=== PATIENT | female | born 1985 | race Caucasian/White ===

== ENCOUNTER → 2018-04-02 | Outpatient (REF) | payer BC ==
[~2018-04-02] MED LIST: AUG875 PO; HYDR2TAB42; HYDROCODONE PO; LOR5 PO; LOR5/325 PO; PANT40TA65 PO; PROM-110 PO; SOMA PO; SUCR1TAB85 PO; TRA50 PO
[2018-04-02 15:23] LABS: PLATELET COUNT, AUTOMATED 314 K/uL (150-450)
== END ==
PROVIDERS: ATTEND Family Medicine
DX: R07.9 Chest pain, unspecified (principal)
CPT/HCPCS: 82040; 82247; 82310; 82374; 82435; 82565; 82947; 84075; 84132; 84155; 84295; 84450; 84460; 84520; 85025; 85379

== ENCOUNTER → 2018-04-23 | Outpatient (CLI) | payer BC ==
[2018-04-23 13:32] LABS: PLATELET COUNT, AUTOMATED 353 K/uL (150-450)
== END ==
LOC: LAB 11:12
PROVIDERS: ATTEND Obstetrics & Gynecology
DX: Z34.01 Encounter for supervision of normal first pregnancy, first trimester (principal)
CPT/HCPCS: 36415; 85025; 86592; 86703; 86762; 86850; 86900; 86901; 87340

== ENCOUNTER → 2018-04-24 | Outpatient (CLI) | payer BC | LOC: LAB 11:11 | PROVIDERS: ATTEND Obstetrics & Gynecology | DX: Z34.01 Encounter for supervision of normal first pregnancy, first trimester (principal) | CPT/HCPCS: 81001; 87088; 87491; 87591 ==

== ENCOUNTER → 2018-05-22 | Outpatient (CLI) | payer BC | LOC: LAB 13:51 | PROVIDERS: ATTEND Obstetrics & Gynecology | DX: Z34.02 Encounter for supervision of normal first pregnancy, second trimester (principal) | CPT/HCPCS: 36415; 81511 ==

== ENCOUNTER → 2018-06-25 | Outpatient (CLI) | payer BC ==
--- NOTE | 2018-06-25 13:23 | RADIOLOGY IMAGING REPORT ---
FACILITY: [facility] PATIENT NAME: Yue Navarro : 1985 MR: [id number] V: [id number] EXAM DATE: ORDERING PHYSICIAN: AMY MASON TECHNOLOGIST: Location: [facility] Patient: Yue Navarro : 1985 Visit/Account:[id number] Date of Sevice: 06/25/2018 EXAMINATION: Ultrasound transabdominal OB > 14 weeks with anatomic evaluation HISTORY: 20 week anatomical survey COMPARISON: None. TECHNIQUE: Transabdominal imaging was performed for assessment of the fetus and maternal pelvic structures. T ransvaginal imaging was not performed. FINDINGS: Placenta: Posterior without previa. Uterus: Gravid, otherwise normal Cervix: Long and closed. Maternal Ovaries: Not visualized. Maternal and other adnexa findings: Negative. Intrauterine gestations: One. presentation: Variable heart rate: Normal and regular at 147 bpm Amniotic fluid index: 13 cm Largest amniotic fluid pocket: Images not submitted Gestational Parameters: BPD: 4.52 cm 19 weeks/ five days, 48 percentile HC: 17.22 cm 19 weeks/ six days, 46 percentile AC: Routine 0.29 cm 19 weeks/ five days, 42 central FL: 3.12 cm 19 weeks/ five days, 41 Average ultrasound age (AUA): 19 weeks/six days, BRENDA 11/13/2018 Estimated gestational age by BRENDA: 19 weeks/five days, BRENDA 11/14/2018 Estimated weight (EFW): 306 grams +/- 45 grams EFW for BRENDA: 43 percentile Anatomic Survey: Intracranial structures, 4-chamber heart, stomach, kidneys, urinary bladder, spine, 3-vessel cord and cord insertion are unremarkable. Two upper and two lower extremities visualized. Cardiac ventricula r outflow tracts, palate and lips are unremarkable in appearance. IMPRESSION: Single viable fetus in variable presentation with an estimated gestational age by measur ements of 19 weeks and six days. Estimated weight is 306 g equivalent to the 43rd percentile Report Dictated By: Irene Snow MD at 06/25/2018 1:11 PM Report E-Signed By: Irene Snow MD at 06/25/2018 1:19 PM WSN:LYNDON
== END ==
LOC: RAD 10:42
PROVIDERS: ATTEND Obstetrics & Gynecology
DX: Z02.9 Encounter for administrative examinations, unspecified (principal)

== ENCOUNTER → 2018-08-14 | Outpatient (CLI) | payer BC, MEDICAID ==
[~2018-08-14] MED LIST changes: +DIPH0.5S2 IM; +ONDA4TAB9 PO; +PREN-127 PO
[2018-08-14 14:59] LABS: PLATELET COUNT, AUTOMATED 307 K/uL (150-450)
== END ==
LOC: LAB 13:01
PROVIDERS: ATTEND Obstetrics & Gynecology
DX: Z34.02 Encounter for supervision of normal first pregnancy, second trimester (principal)
CPT/HCPCS: 36415; 82950; 85025

== ENCOUNTER → 2018-08-17 | Outpatient (CLI) | payer BC, MEDICAID | LOC: LAB 09:55 | PROVIDERS: ATTEND Obstetrics & Gynecology | DX: O99.810 Abnormal glucose complicating pregnancy (principal) | CPT/HCPCS: 36415; 82951; 82952 ==

== ENCOUNTER → 2018-10-15 | Outpatient (CLI) | payer BC, MEDICAID ==
[~2018-10-15] MED LIST changes: +BET6I IM ONLY
== END ==
LOC: LAB 07:50
PROVIDERS: ATTEND Obstetrics & Gynecology
DX: Z34.93 Encounter for supervision of normal pregnancy, unspecified, third trimester (principal)
CPT/HCPCS: 87081

== ENCOUNTER → 2018-10-15 | Outpatient (CLI) | payer BC, MEDICAID ==
--- NOTE | 2018-10-15 13:52 | RADIOLOGY IMAGING REPORT ---
FACILITY: [facility] PATIENT NAME: Yue Navarro : 1985 MR: [id number] V: [id number] EXAM DATE: ORDERING PHYSICIAN: AMY MASON TECHNOLOGIST: Location: [facility] Patient: Yue Navarro : 1985 Visit/Account:[id number] Date of Sevice: 10/15/2018 EXAMINATION: Ultrasound transabdominal OB > 14 weeks with anatomic evaluation HISTORY: Uterine size date discrepancy COMPARISON: June 25, 2018 TECHNIQUE: Transabdominal imaging was performed for assessment of the fetus and maternal pelvic structures. T ransvaginal imaging was not performed. FINDINGS: Placenta: Posterior without previa. Uterus: Gravid, otherwise normal Cervix: Long and closed. Maternal Ovaries: Not visualized. Maternal and other adnexa findings: Not visualized Intrauterine gestations: One. presentation: Cephalic heart rate: Normal and regular at 149 bpm Amniotic fluid index: 12.36 cm Largest amniotic fluid pocket: 4.56 cm Gestational Parameters: BPD: 8.84 cm 35 weeks/ six days, 58% HC: 31.49 cm five weeks/ free days, 13% AC: 30.35 cm 34 weeks/ three days, 20% FL: 6.7 cm 34 weeks/ two days, 12% Average ultrasound age (AUA): 35 weeks/zero days, BRENDA 11/19/2018 Estimated gestational age by LMP: 35 weeks/five days, BRENDA 11/14/2018 Estimated weight (EFW): 2456 grams +/- 359 grams EFW for LMP: 20% percentile Anatomic Survey: Anatomic survey not performed IMPRESSION: Single fetus in cephalic presentation with an estimated gestational age by measurements of 35 weeks and zero days. The estimated gestational age by LMP is 35 weeks and five days. The estimated weight is 2456 g equivalent to the 20th percentile Report Dictated By: Irene Snow MD at 10/15/2018 1:42 PM Report E-Signed By: Irene Snow MD at 10/15/2018 1:46 PM WSN:LYNDON
== END ==
LOC: RAD 09:53
PROVIDERS: ATTEND Obstetrics & Gynecology
DX: Z02.9 Encounter for administrative examinations, unspecified (principal)

== ENCOUNTER → 2018-10-16 | Outpatient (CLI) | payer BC, MEDICAID ==
[2018-10-16 09:32] LABS: PLATELET COUNT, AUTOMATED 245 K/uL (150-450)
== END ==
LOC: LAB 08:43
PROVIDERS: ATTEND Obstetrics & Gynecology
DX: O16.3 Unspecified maternal hypertension, third trimester (principal)
CPT/HCPCS: 36415; 82040; 82247; 82310; 82374; 82435; 82565; 82570; 82947; 83615; 84075; 84132; 84155; 84156; 84295; 84450; 84460; 84520; 84550; 85025

== ENCOUNTER 2018-10-23 19:43 | Inpatient (IN) | payer MEDICAID ==
[~2018-10-23] VITALS: Ht 182.9 cm; Wt 121.1 kg
[2018-10-23] MEDS ORDERED: FAMOTIDINE(*) 20MG/50ML PREMIX 50 ML IVPB PRN (19:46)
[2018-10-23] MEDS ORDERED: OXYTOCIN 30 UNIT/NS 500 ML 500 ML IV PRN (19:46)
[2018-10-23] MEDS ORDERED: ceFAZolin(*) 2GM/D5W 50ML 50 ML IVPB PRN (19:46)
[2018-10-23] MEDS ORDERED: MISOPROSTOL 25 MCG CAP PV PRN (19:50)
[2018-10-23] MEDS ORDERED: LIDOCAINE 1% LOCAL 300 MG/30ML INJ PRN (19:50)
[2018-10-23] MEDS ORDERED: fentaNYL CITR 100 MCG/2 ML AMP IVP PRN (19:50)
[2018-10-23] MEDS ORDERED: LIDOCAINE/SOD BICARB 8.4% SYR SC PRN (19:50)
[2018-10-23] MEDS ORDERED: DINOPROSTONE 10 MG INSERT PV ONE (19:50)
[2018-10-23] MEDS ORDERED: METOCLOPRAMIDE 10 MG/2 ML SDV IVP PRN (19:50)
[2018-10-23 20:20] VITALS: BP 128/75; Ht 182.9 cm; Wt 121.1 kg
[2018-10-23 20:39] LABS: PLATELET COUNT, AUTOMATED 267 K/uL (150-450)
[2018-10-23 21:13] LABS: INR 0.92
[2018-10-23] MEDS ORDERED: ZOLPIDEM TARTRATE 10 MG TAB PO ONE (22:55)
[2018-10-23] MEDS ORDERED: CLINDAMYCIN(*) 900 MG/NS 50 ML 50 ML IVPB PRN (22:55)
[2018-10-23] MEDS ORDERED: CALCIUM CARBONATE 500 MG CHEW PO PRN (22:55)
[2018-10-23] MEDS ORDERED: ONDANSETRON 4 MG/2 ML VIAL IVP PRN (22:55)
[2018-10-23] MEDS: ACETAMINOPHEN 325 MG TAB PO PRN (23:14)
[2018-10-24] VITALS (23 sets, daily range): BP systolic 87–120; BP diastolic 55–80
[2018-10-24] MEDS: LR(*) 1000 ML BAG 1,000 ML IV PRN ×2 (03:16→03:17)
[2018-10-24] MEDS: ACETAMINOPHEN 325 MG TAB PO PRN (04:02)
[2018-10-24] MEDS ORDERED: BUPIVACAINE 0.25% MPF INJ EPI PRN (08:00)
[2018-10-24] MEDS ORDERED: BUPIVACAINE 0.5% INJ 30ML VIAL EPI PRN (08:00)
[2018-10-24] MEDS ORDERED: fentaNYL CITR 100 MCG/2 ML AMP IT PRN (08:00)
[2018-10-24] MEDS ORDERED: LIDOCAINE/PF 2% 200MG/10ML AMP 200 MG/10 ML AMPUL EPI PRN (08:00)
[2018-10-24] MEDS ORDERED: FENTANYL/ROPIVACAINE 100 ML BAG EPI PRN (08:00)
[2018-10-24] MEDS ORDERED: LIDO/EPI 2% MPF 1:200,000 20ML EPI PRN (08:00)
--- NOTE | 2018-10-24 09:08 | Labor Progress Note ---
Labor Subjective Progress Notes Subjective PT feeling pain with ctx, rating pain at 5. Vaginal Discharge/Fluid: Bloody Show Labor Pain: Moderate Labor Objective Vital Signs Vital Signs Date Time Temp Pulse Resp B/P (MAP) Pulse Ox O2 Delivery O2 Flow Rate FiO2 10/23/18 20:20 98.1 71 21 128/75 (92) 95 Room Air Vaginal Discharge/Fluid?: Bloody Show, Clear Fluid Cervical Dialation: 3.5 Cervical Effacement (%): 70 Cervical Consistency: Soft Cervical Position: Anterior Station: -2 Presentation: Vertex Uterine Contractions(Q min): 1 Uterine Contraction Strength: Moderate Fetus Heart Tone Variabilty: Moderate FHT Accelerations: 15X15 FHT Decelerations: Variable FHT Category: II General Exam General Appearance: Alert/Awake/No Acute Distress Psychological: Alert & Oriented X3, Appropriate Mood & Affect Other Result Diagram: 10/23/18202510/23/182025 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 If no improvement will proceed with PLTCS. ) Problems: (1) Variable heart rate decelerations, antepartum Status: Acute MAYRA DE LUNA DO Oct 24, 2018 09:08
[2018-10-24] MEDS ORDERED: OXYTOCIN 10 UNIT/ML SDV ONE (09:12)
[2018-10-24] MEDS ORDERED: fentaNYL CITR 100 MCG/2 ML AMP ONE (09:12)
[2018-10-24] MEDS ORDERED: MORPHINE PF 5 MG/10 ML AMP ONE (09:12)
--- NOTE | 2018-10-24 09:28 | Labor Progress Note ---
Labor Subjective Progress Notes Subjective Continued pain with ctx Labor Objective Vital Signs Vital Signs Date Time Temp Pulse Resp B/P (MAP) Pulse Ox O2 Delivery O2 Flow Rate FiO2 10/23/18 20:20 98.1 71 21 128/75 (92) 95 Room Air Cervical Dialation: 3 Cervical Effacement (%): 70 Station: -2 Presentation: Vertex Uterine Contractions(Q min): 5 Uterine Contraction Strength: Strong UC Resting Tone: Soft Fetus Heart Tone Variabilty: Moderate FHT Accelerations: Absent FHT Decelerations: Variable (recurrent variables to the 70s with ctx ) General Exam General Appearance: Alert/Awake/No Acute Distress Abdomen: Gravid - Non-Tender Other Result Diagram: 10/23/18202510/23/182025 Assessment and Plan Problems: (1) Variable heart rate decelerations, antepartum Status: Acute Assessment & Plan: Variables persist with every ctx, patient is remote from delivery. Will proceed with PLTCS due to nonreassuring status. Informed consent obtained. Risks and benefits discussed with patient. MAYRA DE LUNA DO Oct 24, 2018 09:28
[2018-10-24] MEDS ORDERED: NS 0.9% IVPB ONE ×2 (09:36→12:35)
[2018-10-24] MEDS ORDERED: GENTAMICIN IVPB ONE ×2 (09:36→12:35)
[2018-10-24] MEDS ORDERED: DLR(*) 1000 ML BAG 1,000 ML IV PRN (10:39)
[2018-10-24] MEDS ORDERED: LANOLIN OINT 7 GM TUBE TP PRN (10:40)
[2018-10-24] MEDS ORDERED: ONDANSETRON 4 MG/2 ML VIAL IV PRN (10:40)
[2018-10-24] MEDS ORDERED: SIMETHICONE 80 MG CHEW CHEW PRN (10:40)
[2018-10-24] MEDS ORDERED: PROMETHAZINE 25 MG/ML 1 ML AMP IVP PRN (10:40)
[2018-10-24] MEDS ORDERED: ACETAMINOPHEN 325 MG TAB PO PRN (10:40)
[2018-10-24] MEDS ORDERED: MAGNESIUM HYDROXIDE* 30ML UDCP PO PRN (10:40)
--- NOTE | 2018-10-24 11:48 | History & Physical ---
History of Present Illness Age of Patient: 33 : 1 Para or TPAL: 0 Estimated Gestational Age: 37 Chief Complaint IOL for gHTN History of Present Illness PT dx with ghtn last week, 24 hr urine was 280 and labs are normal. Prior to last visit was normal. Recent growth u/s showed normal YASMIN and EFW at 23%. History Patient's Blood Type: B Positive Rubella Status: Immune Group B Strep Screen: Negative Allergies: Coded Allergies: Penicillins (Verified Allergy, Severe, ANAPHYLAXIS, 10/24/18) amoxicillin (Verified Allergy, Intermediate, ANAPHYLAXIS, 10/24/18) clarithromycin (Verified Adverse Reaction, Severe, 10/24/18) Liver Inflammation. Med Rec Home Meds Reported Medications Vits W-Ca,Fe,Fa(<1MG) ( VITAMINS) 1 Each Tablet, 1 EACH PO DAILY, TAB 07/17/18 Review of Systems Neurological: Other (no headache) Eyes: No Vision Change Cardiovascular: No Chest Pain, No Palpitations Respiratory: No Shortness of Breath, No Cough Exam General Exam Vital Signs Vital Signs Date Time Temp Pulse Resp B/P (MAP) Pulse Ox O2 Delivery O2 Flow Rate FiO2 10/24/18 11:24 54 18 116/74 (88) 94 Room Air 10/24/18 11:05 97.6 General Apperance: Alert/Awake/No Acute Distress Neuro: No Gross deficits Cardiovascular: Regular Rate and Rhythm Respiratory: No Respiratory Distress Abdomen: Soft, Non-Tender, Non-Distended Musculoskeletal: No Weakness/Pain Extremities: No Cyanosis,Clubbing or Edema Integumentary: Skin Intact without Lesions or Rash Psychological: Alert & Oriented X3, Appropriate Mood & Affect Cervical Dialation: 1 Cervical Effacement (%): 50 Cervical Consistency: Soft Cervical Position: Anterior Station: -3 Presentation: Vertex Uterine Contraction Strength: Mild UC Resting Tone: Soft Fetus Feeling Movement?: Yes Heart Tone Variabilty: Moderate FHT Accelerations: Present, 15X15 FHT Category: I Medical Decision Making Data Points Result Diagram: 10/23/18202510/23/182025 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 GBS negative.) Problems: (1) Gestational [-induced] hypertension without significant proteinuria, third trimester Assessment & Plan: Proceed with cervidil for IOL. PIH labs ordered and pending. MAYRA DE LUNA DO Oct 24, 2018 11:48
--- NOTE | 2018-10-24 11:53 | Anesthesia OB Pre-Anes Eval ---
History of Present Illness Anesthesia Start Date: Oct 23, 2018 Anesthesia Start Time: 21:30 OB Anesthesia Diagnosis: gestational hypertension, induction - medical (pre- eclamsia) Complications: none known EDC: Nov 14, 2018 : 1 Para: 0 Vital Signs: FHT 146 variability good. 97.7 degrees f, rr 17, p 77, BP 118/89 Pain Ratin Heart Tones: 146 Result Diagram: 10/23/18202510/23/182025 Height (Inches): 72.00 Weight (Pounds): 267 BMI (kg/m2): 37 Past Medical History Medical History: obesity, other (Hx lumbar sacral fractures and pelvis from sledding accident 2006-., chewing tobbaco - not during ,) Surgical History: appendectomy, cholecystectomy, tonsillectomy, other (hernia repair, knee arthroscopy, anchors in left shoulder possible retained metal for reconstructon.) Previous Anesthesia: general, other (has has peripheral blocks for shoulder surgery and knee - She did not prefer being numb.) Hx Anesthesia Reactions: No Hx Family Anesthesia Reaction: No Current Medications: pitocin, other (cervidil) Home Meds Reported Medications Vits W-Ca,Fe,Fa(<1MG) ( VITAMINS) 1 Each Tablet, 1 EACH PO DAILY, TAB 07/17/18 Allergies: Coded Allergies: Penicillins (Verified Allergy, Severe, ANAPHYLAXIS, 10/24/18) amoxicillin (Verified Allergy, Intermediate, ANAPHYLAXIS, 10/24/18) clarithromycin (Verified Adverse Reaction, Severe, 10/24/18) Liver Inflammation. Anesthesia OB ROS Neurological: migraines/headaches (occ headaches, uses caffiene); No seizures, No neuropathy, No other Eyes ROS: contacts out ENT: Denies Tooth caps, Denies Loose teeth, Denies Chipped teeth, Denies Dentures, Denies Bridges, Denies Retainers, Denies Veneers, Denies Implants, Denies Tongue ring, Denies Other Pulmonary: No asthma, No smoker (pks/day/yrs), No other Airway Class: ll Cardiovascular ROS: edema (gest, HTN), other GI ROS: clear liquids ROS: No Herpes, No STD(s), No Liver Disease, No Renal Disease, No Other Endocrine ROS: No diabetes, No gestational diabetes, No thyroid disorder, No other Musculoskeletal ROS: low back pain, low back injury ASA Classification: 2 Assessment and Plan Assessment: Pt is unsure about whether she will want to have epidural or CSE. She wishes to wait and see. She currently is not in labor. Risks, alternatives and emergency options covered for labor pain and emergency section. Assessment Calm female with supportive at her side, for medical induction. Pedal/ankle edema reported last week is resolved. TOMASA AGUIRRE EMPLOYMENT DIRECTOR Oct 24, 2018 11:53
[2018-10-24] MEDS ORDERED: NALOXONE HCL 0.4 MG/ML VIAL IV PRN (12:05)
[2018-10-24] MEDS ORDERED: diphenhydrAMINE 25 MG CAP PO PRN (12:05)
[2018-10-24] MEDS ORDERED: NALBUPHINE HCL 10 MG/ML AMP IVP PRN (12:05)
[2018-10-24] MEDS ORDERED: METOCLOPRAMIDE 10 MG/2 ML SDV IVP ONE (12:25)
[2018-10-24] MEDS ORDERED: CLINDAMYCIN(*) 900 MG/NS 50 ML 50 ML IVPB ONE (12:25)
[2018-10-24] MEDS ORDERED: FAMOTIDINE 20 MG/50 ML PREMIX IVPB ONE (12:25)
--- NOTE | 2018-10-24 15:21 | Post Operative Note ---
Operative Note - POSTAL CARRIER Operative Day Date: Oct 24, 2018 Physicians Surgeon: Dr. Boateng Manager Transfusion: Ivania King CNM Anesthesia: Spinal Diagnosis Pre-Op Diagnosis: IUP at 37 weeks, gHTN, nonreassuring status, remote from delivery Post-Op Diagnosis: Same as above. Procedure Findings: Viable male fetus in the OP presentation, nuchal cord x 1. Apgars 8 and 9. 4 lb 11 oz. Normal appearing uterus tubes and ovaries. Procedure(s): PLTCS Specimen Removed:(Maybe N/A): Placenta, umbilical cord gases and blood Complications: none Fluids Estimated Blood Loss: 500 cc Dictated Date OP Note Dictated: Oct 24, 2018 MAYRA BOATENG DO Oct 24, 2018 15:21
[2018-10-24] MEDS ORDERED: KETOROLAC 30 MG/ML VIAL IVP SCH (16:00)
--- NOTE | 2018-10-24 16:08 | OPERATIVE REPORT 1 ---
EVENT DATE: October 24, 2018 SURGEON: Angela Boateng DO ANESTHESIA: Spinal. ATTENDING PATHOLOGIST: Nydia King CNM PREOPERATIVE DIAGNOSES 1. Intrauterine at 37 weeks. 2. Gestational hypertension. 3. Nonreassuring status. 4. Remote from delivery. POSTOPERATIVE DIAGNOSES 1. Intrauterine at 37 weeks. 2. Gestational hypertension. 3. Nonreassuring status. 4. Remote from delivery. PROCEDURE PERFORMED Primary low transverse section. ESTIMATED BLOOD LOSS 500 mL. TISSUES REMOVED Placenta, umbilical cord gases, and umbilical blood. COMPLICATIONS None. FINDINGS Viable male fetus in the occiput posterior presentation. Nuchal cord times one. Apgars 8 and 9. weight 4 pounds 11 ounces. Normal-appearing uterus, tubes, and ovaries. DISPOSITION Stable to recovery room. DESCRIPTION OF PROCEDURE After informed consent was obtained, the patient was taken to the operating room. Spinal anesthesia was administered and found to be adequate. Patient was placed on the operating table in the supine position with a leftward tilt and then prepped and draped in the normal sterile fashion. Pfannenstiel skin incision was made using a scalpel and carried down to the underlying layer of the fascia. The fascia was incised in midline and extended out laterally with sharp dissection. Daphney clamps were then placed on the superior and inferior aspects of the fascia, tenting it up, and underlying rectus muscles were dissected off sharply. Rectus muscles were then in the midline. Peritoneum was entered digitally and extended out laterally with sharp dissection with good visualization of both bowel and bladder. Once inside the peritoneal cavity, the Narendra O abdominal retractor was placed and secured. At this time, the uterus was incised in a transverse curvilinear fashion, and then hysterotomy incision was extended out laterally using blunt dissection. This was a low transverse incision. After extending the incision, the infant's head was delivered atraumatically. It was noted to be in the occiput posterior presentation. was vigorous at . Nose and mouth were bulb suctioned. Three-vessel cord was clamped and cut after a 30-second delay, and the was handed off to our awaiting nurse transplant, Dr. Drake. Next, a second of cord was doubly clamped and cut and handed off for umbilical cord blood and umbilical cord gases. Placenta was then delivered manually. Uterus was exteriorized, cleared of all clots and debris, and hysterotomy incision was repaired in a running locked fashion using 0 Vicryl. Two additional stitches of 0 Vicryl were used along the hysterotomy incision in a [id number] fashion for hemostasis. We did examine the patient's uterus. It was normal in appearance. Both fallopian tubes and ovaries were also normal. At this time, the uterus was returned back to the abdomen. Gutters were cleared of any remaining clots and debris. The Narendra O retractor was removed, and we proceeded with closure of our fascia. Fascia was reapproximated in the midline using #1 Vicryl. Subcutaneous layer was then dried after irrigation. It was reapproximated using a double layer of 3-0 Vicryl. The skin was then closed using a subcuticular stitch of 4-0 Monocryl. Steri-Strips were then placed across the incision. Patient tolerated the procedure well. Sponge, lap, and instrument counts were correct, and she was taken to the recovery room in stable condition. NAVID
[2018-10-24] MEDS: KETOROLAC 30 MG/ML VIAL IVP SCH ×2 (18:03→23:55)
[2018-10-24] MEDS: FAMOTIDINE 20 MG TAB PO SCH (21:04)
[2018-10-24] MEDS: DOCUSATE CALCIUM 240 MG CAP PO SCH (21:04)
[2018-10-25] VITALS (7 sets, daily range): BP systolic 103–122; BP diastolic 69–79
[2018-10-25] MEDS ORDERED: LR(*) 1000 ML BAG 2,000 ML ONE (04:09)
[2018-10-25 06:12] LABS: PLATELET COUNT, AUTOMATED 163 K/uL (150-450)
--- NOTE | 2018-10-25 08:52 | Anesthesia Post Eval Note ---
Anesthesia Post Eval Note Vital Signs Date Time Temp Pulse Resp B/P (MAP) Pulse Ox O2 Delivery O2 Flow Rate FiO2 10/25/18 03:05 98.5 75 12 121/71 (88) Room Air 10/24/18 23:10 91 Pt able to participate in Eval: Yes Cardiovascular Status: Satisfactory Respiratory Status: Satisfactory Pain Managment: Satisfactory PO Nausea/Vomiting: Satisfactory Temperature Management: Satisfactory Mental Status: Satisfactory, Alert, Oriented X3 Post-Op Hydration Status: Satisfactory, Tolerating PO Well, Voiding w/o Difficulty (Odom has been removed) Anesthesia Type: SAB Anesthesia Tolerance: Alert with complaint of on-going PETERSON all week, even before labor. PDPH discussed. Pt will seek medical intervention if PETERSON worsens while upright and or is relieved by laying down. Caffeine and fluids encouraged. She expresses satisfaction with spinal anesthesia for C/S. Has ambulated voided and moved bowels. TOMASA AGUIRRE TALENT ACQUISITION CONSULTANT Oct 25, 2018 08:52
[2018-10-25] MEDS ORDERED: DIPHTH/TETANUS/ACEL. PERTUSSIS IM ONLY ONE (09:00)
[2018-10-25] MEDS ORDERED: MEASLES,MUMP,RUBELLA VAC 0.5ML SUBQ ONE (09:00)
[2018-10-25] MEDS ORDERED: INFLUENZA VIRUS VAC 0.5ML SYR IM ONLY ONE (09:00)
[2018-10-25] MEDS: FAMOTIDINE 20 MG TAB PO SCH ×2 (09:30→20:24)
[2018-10-25] MEDS: DOCUSATE CALCIUM 240 MG CAP PO SCH ×2 (09:30→20:24)
[2018-10-25] MEDS ORDERED: IBUPROFEN 800 MG TAB PO SCH (10:00)
--- NOTE | 2018-10-25 13:16 | OB/GYN Progress Note ---
OB Subjective Progress Notes Subjective Doing good POD # 1. Tolerating regular diet. Does complain of some swelling in her lower extremity. +BM. Voiding with out any difficulty. with some bottle supplementation. GI: NEG Nausea, NEG Vomiting, NEG Flatus, NEG Bowel Movement : Voiding Well, Vaginal Bleeding, Moderate Pain: Mild, Tolerating PO Pain Meds Neurological: No Headache, No Other Eyes: No Visual Disturbances OB Objective Physical Exam Vital Signs Date Time Temp Pulse Resp B/P (MAP) Pulse Ox O2 Delivery O2 Flow Rate FiO2 10/25/18 08:15 97.9 76 16 109/75 (86) 94 Room Air Intake and Output 10/25/18 07:02 Intake Total 4035 ml Output Total 1900 ml Balance 2135 ml Intake Oral 1960 ml IV Total 1000 ml Other 1075 ml Output Urine Total 1900 ml # Voids 3 # Bowel Movements 1 General Appearance: Alert/Awake/No Acute Distress Neurological: No Gross deficits Respiratory: No Respiratory Distress Incision: Clean, Dry, Intact, Other (Steri Strips, dry blood. 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 Will continue to monitor the patient. Plan for discharge tomorrow or 10/26. FARRAH RAMACHANDRAN DO Oct 25, 2018 13:16
[2018-10-25] MEDS: oxyCODON/ACET (*)5/325MG (CII) 1 TAB TAB PO PRN (15:51)
[2018-10-25] MEDS: IBUPROFEN 800 MG TAB PO SCH (15:51)
[2018-10-26] MEDS: IBUPROFEN 800 MG TAB PO SCH ×3 (00:10→16:18)
[2018-10-26] MEDS: oxyCODON/ACET (*)5/325MG (CII) 1 TAB TAB PO PRN ×3 (00:11→21:15)
[2018-10-26 03:15] VITALS: BP 115/73
[2018-10-26] MEDS: DOCUSATE CALCIUM 240 MG CAP PO SCH ×2 (08:16→21:14)
[2018-10-26] MEDS: FAMOTIDINE 20 MG TAB PO SCH ×2 (08:16→21:14)
[2018-10-26 08:35] VITALS: BP 128/91
--- NOTE | 2018-10-26 10:30 | OB/GYN Progress Note ---
OB Subjective Progress Notes Subjective PT doing well. Pain well controlled off narcotics. Voiding well. Passing flatus and had bowel movement. Still struggling with . Her milk is not in yet and she is using donor milk. OB Objective Physical Exam Vital Signs Date Time Temp Pulse Resp B/P (MAP) Pulse Ox O2 Delivery O2 Flow Rate FiO2 10/26/18 03:15 98.1 63 12 115/73 (87) 94 Room Air Intake and Output 10/26/18 07:02 Intake Total 2050 ml Balance 2050 ml Intake Oral 2050 ml # Voids 2 General Appearance: Alert/Awake/No Acute Distress Neurological: No Gross deficits Respiratory: No Respiratory Distress Incision: Clean, Dry, Intact, Other (Steri Strips, dry blood. 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 No signs of pre-e today. BP well controlled. Will hold patient until tomorrow due to difficulty with feeding. business management consultant to see patient today. MAYRA DE LUNA DO Oct 26, 2018 10:30
[2018-10-26 13:50] VITALS: BP 126/84
[2018-10-26 19:50] VITALS: BP 122/81
[2018-10-26 23:15] VITALS: BP 110/78
[2018-10-27] MEDS: IBUPROFEN 800 MG TAB PO SCH ×3 (00:50→16:27)
[2018-10-27 03:45] VITALS: BP 121/83
[2018-10-27 07:20] VITALS: BP 136/94
[2018-10-27] MEDS: DOCUSATE CALCIUM 240 MG CAP PO SCH (08:53)
[2018-10-27] MEDS: FAMOTIDINE 20 MG TAB PO SCH (08:53)
--- NOTE | 2018-10-27 09:58 | OB/GYN Discharge Summary ---
Discharge Summary Reason for Hosp/Final Diag: (1) Gestational [-induced] hypertension without significant proteinuria, third trimester Status: Resolved (2) Delivery by section Status: Resolved Hospital Course & Plan: Pt stable to d/c to home, meeting all postop milesto enmanuel. Pt will room in at this time as baby is not ready for d/c. PT to follow up in office on Monday due to ghtn. BP normal since delivery, excellent urine output. Lates Vital Signs Vital Signs Date Time Temp Pulse Resp B/P (MAP) Pulse Ox O2 Delivery O2 Flow Rate FiO2 10/27/18 03:45 97.7 67 14 121/83 (96) 93 Room Air Weight (Pounds): 267 Result Diagram: 10/25/1859 10/23/182025 Condition: Improved Discharge: Home, Self Group Home Meds Reported Medications Vits W-Ca,Fe,Fa(<1MG) ( VITAMINS) 1 Each Tablet, 1 EACH PO DAILY, TAB 07/17/18 Follow up with: [facility] [phone] (1 week ) Follow up in: 3-4 days (PT has appt on Monday with Dr. Boateng ) Discharge Diet: As Tolerates Discharge Activity: As Tolerates, No Heavy Lifting x 6 wks, No Heavy Lifting > 10lb, Pelvic Rest MAYRA BOATENG DO Oct 27, 2018 09:58
[2018-10-27] MEDS ORDERED: OXYC-865 PO (10:00)
[2018-10-27] MEDS ORDERED: IBUP800T37 PO (10:00)
[2018-10-27 11:43] VITALS: BP 128/89
[2018-10-27 16:30] VITALS: BP 131/89
== END 2018-10-27 16:50 | disposition home or self-care (01) | DRG 788 ==
LOC: OB 19:43
PROVIDERS: ADMIT Obstetrics & Gynecology; ATTEND Obstetrics & Gynecology
PROC: 10D00Z1 Extraction of Products of Conception, Low, Open Approach (ICD-10-PCS; principal; 2018-10-24 09:26)
DX: O13.4 Gestational [pregnancy-induced] hypertension without significant proteinuria, complicating childbirth (principal); Z3A.37 37 weeks gestation of pregnancy; Z37.0 Single live birth; O76 Abnormality in fetal heart rate and rhythm complicating labor and delivery; Z87.891 Personal history of nicotine dependence; O69.81X0 Labor and delivery complicated by cord around neck, without compression, not applicable or unspecified
CPT/HCPCS: 36415; 82040; 82247; 82310; 82374; 82435; 82565; 82947; 83615; 84075; 84132; 84155; 84295; 84450; 84460; 84520; 84550; 85025; 85049; 85379; 85384; 85610; 85730; 86850; 86900; 86901; J1580; J1885; J2270; J2405; J2590; J2765; J3010; J3490; J7050; J7120